=== PATIENT | female | born 1960 | race Caucasian/White ===

== ENCOUNTER → 2024-01-15 14:40 | Outpatient (REF) | payer OTHER, SELFPAY | LOC: HWEVLT 14:40 | PROVIDERS: ATTENDING PHYSICIAN Radiology Vascular & Interventional Radiology | DX: I83.893 Varicose veins of bilateral lower extremities with other complications (principal) | CPT/HCPCS: 93970 ==

== ENCOUNTER → 2024-05-05 16:59 | Outpatient (REF) | payer OTHER, SELFPAY | LOC: RAD 16:59 | PROVIDERS: ATTENDING PHYSICIAN Family Medicine | DX: M54.50 Low back pain, unspecified (principal) | CPT/HCPCS: 72110; 72202 ==

== ENCOUNTER → 2024-05-23 08:07 | Outpatient (REF) | payer OTHER, SELFPAY | LOC: WDC 08:07 | PROVIDERS: ATTENDING PHYSICIAN Family Medicine | DX: M81.0 Age-related osteoporosis without current pathological fracture (principal); Z78.0 Asymptomatic menopausal state; Z12.31 Encounter for screening mammogram for malignant neoplasm of breast; R92.8 Other abnormal and inconclusive findings on diagnostic imaging of breast | CPT/HCPCS: 76642; 77063; 77067; 77080 ==